=== PATIENT | female | born 1955 | race Caucasian/White ===

== ENCOUNTER 2019-03-30 23:20 | Emergency (ER) | payer OTHER ==
[~2019-03-30] VITALS: Ht 180.3 cm; Wt 88.5 kg
--- NOTE | 2019-03-30 23:48 | NUR ---
Patient discharged to home in stable conditon. Written and verbal after care instructions given. Patient verbalizes understanding of instructions. Pt walked out of ER in stable gait with daughter. No acute distress noted.
[2019-03-30 23:49] VITALS: BP 141/76
== END 2019-03-30 23:49 | disposition home or self-care (01) ==
LOC: ER 23:29
DX: H43.391 Other vitreous opacities, right eye (principal); E78.5 Hyperlipidemia, unspecified; Z88.6 Allergy status to analgesic agent
CPT/HCPCS: A4663